=== PATIENT | male | born 1970 | race Caucasian/White ===

== ENCOUNTER 2016-07-25 16:59 | Emergency (ER) | payer SELFPAY ==
[~2016-07-25] VITALS: Ht 162.6 cm; Wt 77.1 kg
[2016-07-25 17:53] VITALS: BP 146/91
--- NOTE | 2016-07-25 19:18 | NUR ---
TO ER BED 7
--- NOTE | 2016-07-25 19:18 | NUR ---
45 Y/O M W/C/OPAIN TO R HAND S/P HITTING RIGHT HAND ON CACTUS W/SEVERAL CACTUS NEEDLES REMAINING IN HAND. PT DENIES ANY MEDICAL HX.
[2016-07-25] MEDS ORDERED: IBUPROFEN 600 MG TAB PO ONE (20:00)
[2016-07-25 21:13] VITALS: BP 126/87
--- NOTE | 2016-07-25 21:13 | NUR ---
Patient discharged with v/s stable. Written and verbal after care instructions given and explained. Patient verbalized understanding. Ambulatory with steady gait. All questions addressed prior to discharge. Advised to follow up with PMD OR RETURN TO ER IF CONDITION WORSENS.
== END 2016-07-25 21:13 | disposition home or self-care (01) ==
LOC: MED 16:59
DX: M79.641 Pain in right hand (principal)